=== PATIENT | male | born 1960 | race Asian ===

== ENCOUNTER 2018-12-05 23:25 | Inpatient (IN) | payer OTHER ==
[~2018-12-05] VITALS: Ht 172.7 cm; Wt 78.1 kg
[2018-12-05 23:27] VITALS: Ht 172.7 cm; Wt 78.1 kg
[2018-12-05 23:56] LABS: BASOPHIL % 0.3 % (0-2); PLATELET COUNT 245 x10^3mcL (130-400); RED CELL DISTRIBUTION WIDTH 14.4 % (11.5-14.5)
[2018-12-06] VITALS (7 sets, daily range): BP systolic 105–139; BP diastolic 63–93
[2018-12-06 00:42] LABS: CREATININE SERUM 1.6 mg/dL (0.7-1.3); POTASSIUM SERUM 3.7 mmol/L (3.5-5.1)
[2018-12-06 00:46] LABS: ALBUMIN 3.7 g/dL (3.4-5.0); CALCIUM 8.3 mg/dL (8.5-10.1); TOTAL PROTEIN, SERUM 7.2 g/dL (6.4-8.2)
[2018-12-06 00:47] LABS: BILIRUBIN TOTAL 0.5 mg/dL (0.20-1.00)
[2018-12-06] MEDS ORDERED: EFFEXOR-XR150 MG PO (05:33)
[2018-12-06] MEDS ORDERED: ALBUTEROL0.63 MG/3 IH (05:33)
[2018-12-06] MEDS ORDERED: METOPROLOL SUCC50 M2 PO (05:36)
[2018-12-06 07:04] LABS: MAGNESIUM 1.8 mg/dL (1.8-2.4); PHOSPHOROUS 5.3 mg/dL (2.5-4.9)
[2018-12-06 07:08] LABS: microscopic required? NO
[2018-12-06 07:10] LABS: CHOLESTEROL/HDL RATIO 2.2
[2018-12-06 09:35] LABS: UA SPECIFIC GRAVITY >=1.030 (1.005-1.035); urine erythrocyte NEGATIVE (NEGATIVE)
[2018-12-07 05:13] VITALS: BP 127/74
[2018-12-07 06:51] LABS: CALCIUM 8.2 mg/dL (8.5-10.1); CARBON DIOXIDE 27.7 mmol/L (21-32); CHLORIDE SERUM 103 mmol/L (98-107); GFR1 > 60 mL/min; GLUCOSE SERUM 173 mg/dL (74-106); POTASSIUM SERUM 4.5 mmol/L (3.5-5.1); SODIUM SERUM 137 mmol/L (136-145)
[2018-12-07 07:26] LABS: BASOPHIL % 0.1 % (0-2); PLATELET COUNT 231 x10^3mcL (130-400); RED CELL DISTRIBUTION WIDTH 14.4 % (11.5-14.5)
[2018-12-07 09:12] VITALS: BP 131/79
[2018-12-07 12:07] VITALS: BP 136/79
[2018-12-07] MEDS ORDERED: ASTHMA CHECK1 EACH MC (13:09)
[2018-12-07] MEDS ORDERED: ADV250/50 INH (13:11)
[2018-12-07] MEDS ORDERED: ZITHROMAX1 GM/Packe PO (13:11)
[2018-12-07] MEDS ORDERED: PREDNISONE50 MG PO (13:12)
[2018-12-07] MEDS ORDERED: PREDNISONE20 MG PO (13:14)
[2018-12-07 14:04] VITALS: BP 136/79
== END 2018-12-07 14:45 | disposition home or self-care (01) | DRG 141 ==
LOC: ED 23:25 → DU 12-06 05:33
PROVIDERS: Emergency Medicine; ADMIT Internal Medicine
DX: J45.51 Severe persistent asthma with (acute) exacerbation (principal); N17.0 Acute kidney failure with tubular necrosis; J45.21 Mild intermittent asthma with (acute) exacerbation; E83.39 Other disorders of phosphorus metabolism; E83.51 Hypocalcemia; G47.00 Insomnia, unspecified; E78.5 Hyperlipidemia, unspecified; Z79.84 Long term (current) use of oral hypoglycemic drugs; E11.65 Type 2 diabetes mellitus with hyperglycemia
CPT/HCPCS: 83880; 87804; 94150; J1200; J1644; J1956; J2920; J2930; J7030; J7613; J7620; J7626; J7644; Q0092